=== PATIENT | female | born 1970 | race Caucasian/White ===

== ENCOUNTER 2017-01-01 17:49 | Emergency (ER) | payer OTHER ==
[~2017-01-01] VITALS: Ht 162.6 cm; Wt 62.4 kg
[~2017-01-01 17:49] MED LIST: ADVIL200 MG PO; AGGRENOX1 CAPSULE PO; BAYER CHEWABLE81 MG PO; CARVEDILOL3.125 MG PO; COLACE100 MG PO; ENDOCET 5-3251 EACH PO; HUMULIN N100 UNIT/1 SC; HUMULIN NP100 UNIT/1 SC; HUMULIN R100 UNITS/ SC; LANTUS 10100 UNITS/ SC; LISINOPRIL10 MG PO; LISINOPRIL5 MG PO; LO-DOSE ASPIRIN81 M1 PO; LORAZEPAM0.5 MG PO; METOPROLOL TART50 MG PO; NOVOLOG 10100 UNITS/ SC; NOVOLOG PE100 UNITS/ SC; OXYCODONE HCL5 MG PO; POTASSIUM CHLO20 ME1 PO; PRAVASTATIN SOD20 MG PO; PRAVASTATIN SOD40 MG PO; TYLENOL REGULA325 MG PO; Zocor PO
[2017-01-01] MEDS ORDERED: MOTRIN600 MG PO (19:42)
[2017-01-01 19:57] VITALS: BP 112/49
== END 2017-01-01 19:58 | disposition home or self-care (01) ==
LOC: EME 17:49
DX: S93.601A Unspecified sprain of right foot, initial encounter (principal); X58.XXXA Exposure to other specified factors, initial encounter; Y93.01 Activity, walking, marching and hiking; I10 Essential (primary) hypertension; E78.00 Pure hypercholesterolemia, unspecified; E11.9 Type 2 diabetes mellitus without complications; Z79.4 Long term (current) use of insulin; Z79.82 Long term (current) use of aspirin; F17.200 Nicotine dependence, unspecified, uncomplicated; Z95.1 Presence of aortocoronary bypass graft
CPT/HCPCS: 73630; 99281; 99284

== ENCOUNTER 2017-08-27 18:12 | Emergency (ER) | payer OTHER ==
[~2017-08-27] VITALS: Ht 162.6 cm; Wt 64.2 kg
[~2017-08-27 18:12] MED LIST changes: +MOTRIN600 MG PO
[2017-08-27 18:39] LABS: POINT-OF-CARE METER ID UU14100415
[2017-08-27 19:19] LABS: HEMATOCRIT 36.6 % (36.0-46.0); MCH 24.6 PG (29.0-34.0); MCHC 31.4 G/DL (30.0-36.0); MCV 78.4 FL (83-99); MEAN PLAT.VOLUME 10.5 uM^3 (9.5-12.4); PLATELET COUNT 483 K/uL (156-360); RBC DIS.WIDTH-SD 48.2 % (39-53); RED BLOOD COUNT 4.67 M/uL (3.80-5.20); WHITE BLOOD COUNT 10.1 K/uL (4.1-10.2)
[2017-08-27 19:41] LABS: ADD MIUA? NO; BILIRUBIN NEGATIVE; BLOOD NEGATIVE; COLOR STRAW ((YELLOW)); GLUCOSE (STRIP) 50; KETONES NEGATIVE; LEUKOCYTES NEGATIVE; NITRITE NEGATIVE; PROTEIN (STRIP) NEGATIVE; SPECIFIC GRAVITY 1.004 (1.000-1.030); UCUL ADDED? NO; UROBILINOGEN 0.2 MG/DL (0.2-1.0)
[2017-08-27 19:42] LABS: AMPHETAMINE NEGATIVE (500 ng/mL); BENZODIAZEPINES NEGATIVE (150 ng/mL); COCAINE NEGATIVE (150 ng/mL); METHADONE NEGATIVE (200 ng/mL); METHAMPHETAMINE NEGATIVE (500 ng/mL); OPIATES (MORPHINE) NEGATIVE (100 ng/mL); PHENCYCLIDINE NEGATIVE (25 ng/mL); THC CANNABINOIDS NEGATIVE (50 ng/mL); TRICYCLIC ANTIDEPRESSANTS NEGATIVE (300 ng/mL)
[2017-08-27 19:43] LABS: BARBITURATES NEGATIVE (200 ng/mL); INTERNAL CONTROLS VALID? YES; OXYCODONE NEGATIVE (100 ng/mL); PROPOXYPHENE NEGATIVE (300 ng/mL)
[2017-08-27 19:45] LABS: CHLORIDE 103 mEq/L (99-109); SODIUM 133 mEq/L (136-147)
[2017-08-27 19:46] LABS: GLUCOSE 221 mg/dL (70-99)
[2017-08-27 19:48] LABS: ANION GAP 6 MEQ/L (2-14)
[2017-08-27 19:50] LABS: GFR ESTIMATE (CALCULATED) > 59 mL/min/; SERUM ETHYL ALCOHOL < 10 mg/dL
[2017-08-27 19:51] LABS: UREA NITROGEN (BUN) 13 mg/dL (9-23)
[2017-08-27 20:02] LABS: POINT-OF-CARE METER ID UU14100415
[2017-08-27 20:03] LABS: QUANTITATIVE HCG < 4.0 MIU/ML
[2017-08-27 20:18] VITALS: BP 169/86
== END 2017-08-27 20:21 | disposition home or self-care (01) ==
LOC: EME 18:12
PROVIDERS: Emergency Medicine
DX: E11.649 Type 2 diabetes mellitus with hypoglycemia without coma (principal); T38.3X5A Adverse effect of insulin and oral hypoglycemic [antidiabetic] drugs, initial encounter; Z79.4 Long term (current) use of insulin; L97.519 Non-pressure chronic ulcer of other part of right foot with unspecified severity; I10 Essential (primary) hypertension; E78.5 Hyperlipidemia, unspecified; Z95.1 Presence of aortocoronary bypass graft; Z79.82 Long term (current) use of aspirin; F17.200 Nicotine dependence, unspecified, uncomplicated
CPT/HCPCS: 80048; 81003; 82948; 84702; 85027; 99281; 99285; G0480

== ENCOUNTER 2017-11-26 16:49 | Emergency (ER) | payer OTHER ==
[~2017-11-26] VITALS: Ht 152.4 cm; Wt 63.7 kg
[2017-11-26 18:36] LABS: HEMATOCRIT 37.2 % (36.0-46.0); HEMOGLOBIN 11.8 G/DL (11.9-15.5); MCH 24.3 PG (29.0-34.0); MCHC 31.7 G/DL (30.0-36.0); MCV 76.7 FL (83-99); PLATELET COUNT 495 K/uL (156-360); RBC DIS.WIDTH-CV 17.6 % (11.8-14.6); RBC DIS.WIDTH-SD 48.1 % (39-53); RED BLOOD COUNT 4.85 M/uL (3.80-5.20); WHITE BLOOD COUNT 12.8 K/uL (4.1-10.2)
[2017-11-26 18:45] LABS: CHLORIDE 103 mEq/L (99-109); POTASSIUM 4.5 mEq/L (3.7-5.4); SODIUM 135 mEq/L (136-147)
[2017-11-26 18:47] LABS: GLUCOSE 165 mg/dL (70-99)
[2017-11-26 18:51] LABS: CREATININE 0.7 mg/dL (0.6-1.3); GFR ESTIMATE (CALCULATED) > 59 mL/min/
[2017-11-26 18:52] LABS: UREA NITROGEN (BUN) 16 mg/dL (9-23)
[2017-11-26 19:29] VITALS: BP 132/78
== END 2017-11-26 19:30 | disposition home or self-care (01) ==
LOC: EME 16:49
PROVIDERS: Emergency Medicine
DX: E11.649 Type 2 diabetes mellitus with hypoglycemia without coma (principal); T38.3X5A Adverse effect of insulin and oral hypoglycemic [antidiabetic] drugs, initial encounter; Z79.4 Long term (current) use of insulin; E78.5 Hyperlipidemia, unspecified; I10 Essential (primary) hypertension; I25.10 Atherosclerotic heart disease of native coronary artery without angina pectoris; F17.200 Nicotine dependence, unspecified, uncomplicated; Z95.1 Presence of aortocoronary bypass graft
CPT/HCPCS: 80048; 82948; 85027; 99281; 99284